=== PATIENT | male | born 1985 | race Caucasian/White ===

== ENCOUNTER 2022-04-14 15:14 | Emergency (ER) | payer SELFPAY ==
[~2022-04-14] VITALS: Ht 180.3 cm; Wt 95.3 kg
[2022-04-14 15:50] VITALS: BP 127/79
[2022-04-14] MEDS ORDERED: BACTO TP (16:48)
[2022-04-14] MEDS ORDERED: CEPH-588 PO (16:48)
[2022-04-14] MEDS ORDERED: HYDR25CA1 PO (16:48)
--- NOTE | 2022-04-14 17:35 | NUR ---
Patient discharged with v/s stable. Written and verbal after care instructions ABOUT RASH, AND STRESSgiven and explained. Patient alert, oriented and verbalized understanding of instructions. Ambulatory with steady gait. All questions addressed prior to discharge. ID band removed. Patient advised to follow up with PMD. Rx of KEFLEX, VISTARIL, BACTROBAN OINT given. Patient educated on indication of medication including possible reaction and side effects. Opportunity to ask questions provided and answered.
== END 2022-04-14 17:35 | disposition home or self-care (01) ==
LOC: MED 15:14
DX: F41.9 Anxiety disorder, unspecified (principal); L73.9 Follicular disorder, unspecified; I10 Essential (primary) hypertension; Z79.899 Other long term (current) drug therapy
CPT/HCPCS: 99283

== ENCOUNTER 2022-05-31 00:43 | Emergency (ER) | payer SELFPAY ==
[~2022-05-31] VITALS: Ht 180.3 cm; Wt 95.3 kg
[~2022-05-31 00:43] MED LIST: BACTO TP; CEPH-588 PO; HYDR25CA1 PO
[2022-05-31 00:59] VITALS: BP 128/83
--- NOTE | 2022-05-31 01:27 | NUR ---
PATIENT LEFT WITHOUT BEING SEEN BY DR. Arguello. NO FURTHER CARE PROVIDED FOR PATIENT.
--- NOTE | 2022-05-31 01:27 | NUR ---
PT LEFT ER DEPT FROM ER BED 2
== END 2022-05-31 01:27 | disposition left against medical advice (07) ==
LOC: MED 00:43
DX: G43.909 Migraine, unspecified, not intractable, without status migrainosus (principal); Z53.21 Procedure and treatment not carried out due to patient leaving prior to being seen by health care provider

== ENCOUNTER 2022-11-04 03:43 | Emergency (ER) | payer SELFPAY ==
[~2022-11-04] VITALS: Ht 170.2 cm; Wt 98.4 kg
[2022-11-04 03:49] VITALS: BP 143/100
[2022-11-04] MEDS ORDERED: NACL 0.9% 1,000 ML IV ONE ×2 (04:15→06:35)
[2022-11-04] MEDS ORDERED: ONDANSETRON 4 MG/2 ML VIAL IVP ONE (04:15)
[2022-11-04 04:29] LABS: BASOPHILS # (AUTO) 0.1 K/uL (0.00-0.22); BASOPHILS % (AUTO) 0.4 % (0.0-2.0); HEMATOCRIT 48.9 % (36-52); HEMOGLOBIN 16.7 g/dL (12.0-18.0); LYMPHOCYTES # (AUTO) 1.2 K/uL (2.0-11.5); LYMPHOCYTES % (AUTO) 10.9 % (20.5-51.1); MEAN CORPUSCULAR HEMOGLOBIN 31 pg (27-31); MEAN CORPUSCULAR HGB CONC 34 g/dL (33-37); MEAN CORPUSCULAR VOLUME 90.8 fL (80-94); MONOCYTES # (AUTO) 0.8 K/uL (0.8-1.0); MONOCYTES % (AUTO) 6.9 % (1.7-9.3); NEUTROPHILS # (AUTO) 9.3 K/uL (1.8-7.7); NEUTROPHILS % (AUTO) 81.8 % (42.2-75.2); PLATELET COUNT (AUTO) 200 K/uL (140-450); RED BLOOD CELL COUNT(AUTO) 5.38 MIL/uL (4.20-6.10); RED CELL DISTRIBUTION WIDTH 13.6 % (11.6-13.7); WHITE BLOOD COUNT (AUTO) 11.4 K/uL (4.8-10.8)
[2022-11-04 04:29] LABS: APPEARANCE,URINE CLEAR (CLEAR); BILIRUBIN,URINE NEGATIVE (NEGATIVE); BLOOD, URINE NEGATIVE (NEGATIVE); COLOR,URINE YELLOW (YELLOW); LEUKOCYTE ESTERASE ,URINE NEGATIVE (NEGATIVE); NITRITE, URINE NEGATIVE (NEGATIVE); PH,URINE 5.5 (5.0-9.0); UGLUCOSE NEGATIVE (NEGATIVE)
[2022-11-04 04:42] LABS: ALBUMIN 4.3 g/dL (3.4-5.0); ANION GAP 13.7 (8-16); CARBON DIOXIDE 26.4 mmol/L (21-32); CREATININE 1.6 mg/dL (0.6-1.3); POTASSIUM 4.1 mmol/L (3.5-5.1); TOTAL BILIRUBIN 0.7 mg/dL (0.0-1.0)
[2022-11-04 04:50] LABS: RBC,URINE NONE SEEN /HPF (0-5); WBC,URINE 0-5 /HPF (0-5)
--- NOTE | 2022-11-04 04:52 | NUR ---
PERSISTENT N/V , MEDS AND IVF GIVEN
[2022-11-04] MEDS ORDERED: METOCLOPRAMIDE 10 MG/2 ML INJ VIAL IVP ONE (05:10)
[2022-11-04] MEDS ORDERED: diphenhydrAMINE 50 MG/ML VIAL IVP ONE (06:15)
[2022-11-04] MEDS ORDERED: HALOPERIDOL IM 5 MG/ML VIAL IVP ONE (06:15)
--- NOTE | 2022-11-04 06:29 | NUR ---
DURING ASSESSMENT PT MENTIONED HE SMOKED MARIJUANA EVERYDAY, INFORMED ER DOC, ADDITIONAL ORDERS RECEIVED.i ASKED MD IF PT REQUIRES EKG PRIOR TO GIVING HALDOL IV, STATES NOT NEEDED, 2MG SMALL DOSE, PT PLACED ON MONITOR PRIOR TO GIVING MEDS
--- NOTE | 2022-11-04 06:42 | NUR ---
PT TO CT VIA WHEELCHAIR
--- NOTE | 2022-11-04 06:45 | NUR ---
FEELING BETTER, N/V AND ABDO PAIN SUBSIDED
--- NOTE | 2022-11-04 07:21 | NUR ---
REPORT GIVEN TO NAY ORLANDO
--- NOTE | 2022-11-04 07:22 | NUR ---
REPORT RECEIVED FROM GERTRUDE RN, TRANSFER OF CARE AT THIS TIME
[2022-11-04] MEDS ORDERED: CIPR500T4 PO (07:37)
[2022-11-04] MEDS ORDERED: METR-520 PO (07:37)
[2022-11-04] MEDS ORDERED: ONDA-188 SL (07:37)
[2022-11-04 08:49] VITALS: BP 156/95
--- NOTE | 2022-11-04 08:53 | NUR ---
Patient discharged with v/s stable. Written and verbal after care instructions given and explained. Patient alert, oriented and verbalized understanding of instructions. Ambulatory with steady gait. All questions addressed prior to discharge. ID band removed. Patient advised to follow up with PMD. Rx of cipro, flagyl, zofran given. Patient educated on indication of medication including possible reaction and side effects. Opportunity to ask questions provided and answered.
== END 2022-11-04 08:49 | disposition home or self-care (01) ==
LOC: MED 03:43
DX: K52.9 Noninfective gastroenteritis and colitis, unspecified (principal); R11.2 Nausea with vomiting, unspecified; F12.90 Cannabis use, unspecified, uncomplicated; N17.9 Acute kidney failure, unspecified; Z79.899 Other long term (current) drug therapy
CPT/HCPCS: 36415; 74176; 80053; 81001; 82150; 83690; 85025; 96361; 96374; 96375; 99285; J1200; J1630; J2405; J2765; J7030

== ENCOUNTER 2023-11-27 23:25 | Emergency (ER) | payer OTHER ==
[~2023-11-27] VITALS: Ht 177.8 cm; Wt 97.5 kg
[~2023-11-27 23:25] MED LIST changes: +CIPR500T4 PO; +METR-520 PO; +ONDA-188 SL
[2023-11-27 23:42] VITALS: BP 152/97; PULSE 75; RESP 18; TEMP 96.7; O2SAT 100
[2023-11-28 00:35] VITALS: O2SAT 98
[2023-11-28] MEDS: NACL 0.9% 1,000 ML IV ONE (00:40)
[2023-11-28] MEDS: ONDANSETRON 4 MG/2 ML VIAL IVP ONE (00:40)
[2023-11-28 00:41] LABS: BASOPHILS % (AUTO) 0.2 % (0.0-2.0); HEMATOCRIT 43.9 % (36-52); HEMOGLOBIN 14.8 g/dL (12.0-18.0); LYMPHOCYTES # (AUTO) 0.8 K/uL (2.0-11.5); LYMPHOCYTES % (AUTO) 5.4 % (20.5-51.1); MEAN CORPUSCULAR HEMOGLOBIN 31 pg (27-31); MEAN CORPUSCULAR HGB CONC 34 g/dL (33-37); MEAN CORPUSCULAR VOLUME 92.4 fL (80-94); MONOCYTES # (AUTO) 0.2 K/uL (0.8-1.0); MONOCYTES % (AUTO) 1.2 % (1.7-9.3); NEUTROPHILS # (AUTO) 13.7 K/uL (1.8-7.7); NEUTROPHILS % (AUTO) 93.2 % (42.2-75.2); PLATELET COUNT (AUTO) 261 K/uL (140-450); RED BLOOD CELL COUNT(AUTO) 4.75 MIL/uL (4.20-6.10); RED CELL DISTRIBUTION WIDTH 13.9 % (11.6-13.7); WHITE BLOOD COUNT (AUTO) 14.7 K/uL (4.8-10.8)
[2023-11-28 01:09] LABS: ALBUMIN 4.2 g/dL (3.4-5.0); ANION GAP 14.3 (8-16); CALCIUM 9.4 mg/dL (8.5-10.1); CARBON DIOXIDE 26.8 mmol/L (21-32); CREATININE 1.3 mg/dL (0.6-1.3); POTASSIUM 4.1 mmol/L (3.5-5.1); TOTAL BILIRUBIN 0.7 mg/dL (0.0-1.0); TOTAL PROTEIN, SERUM 8.1 g/dL (6.4-8.2)
[2023-11-28] MEDS ORDERED: ONDA-188 SL (01:17)
[2023-11-28 01:46] VITALS: BP 162/89; PULSE 77; RESP 18; TEMP 98.1; O2SAT 98
== END 2023-11-28 01:46 | disposition home or self-care (01) ==
LOC: MED 23:25
DX: R11.2 Nausea with vomiting, unspecified (principal); Z79.899 Other long term (current) drug therapy
CPT/HCPCS: 36415; 80053; 83690; 85025; 96361; 96374; 99283; J2405; J7030